=== PATIENT | male | born 1970 | race Hispanic/Latino ===

== ENCOUNTER → 2023-03-19 11:42 | Outpatient (CLI) | payer OTHER, SELFPAY ==
--- NOTE | 2023-03-19 11:47 | DI.MRI.S_ITS ---
PROCEDURE: MR HAND LT WO CON INDICATIONS: left hand pain TECHNIQUE: Noncontrast coronal T1 spin echo and T2 fast spin echo with fat saturation, axial proton density fast spin echo and T2 fast spin echo with fat saturation, sagittal T1 spin echo and STIR through the hand and fingers. COMPARISON: None. FINDINGS: Image quality: Excellent. Bones: Mild focal subchondral edema within the 4th metacarpal head adjacent to the articular surface, which may be reactive or secondary to overlying cartilage loss or prior trauma versus possibly an early erosions/osteitis. No other foci of abnormal osseous signal identified. The bones are normally aligned. Soft tissues: Focal hypointense soft tissue thickening is seen in the subcutaneous tissues at the volar aspect of the hand at the level of the distal 4th metacarpal overlying the flexor tendons. Similar but less prominent findings are also seen date superficial to the 5th flexor tendons. There is mild edema surrounding the 5th extensor tendon at the level of the 4th metacarpophalangeal joint, consistent with mild tenosynovitis. The visualized flexor and extensor tendons otherwise appear to be intact. No focal soft tissue edema or abnormal fluid. Visualized muscles demonstrate normal bulk and internal signal. No intramuscular masses identified. No ganglion cysts. IMPRESSION: 1. Mild edema surrounding the 4th extensor tendon at the level of the 4th metacarpophalangeal joint is suspicious for mild tenosynovitis. 2. Hypointense structures in the volar subcutaneous tissues superficial to the 4th flexor tendons, and to a lesser extent the 5th flexor tendons, are suspicious for Dupuytren's disease. 3. Mild focal osseous edema within the 4th metacarpal head may be secondary to overlying mild degenerative changes versus reactive to the adjacent tenosynovitis, or possibly related to focal osteitis/early osseous erosion. No signs of an inflammatory arthritis are seen in the remainder of the hand. Approved by: Geovanni Tiwari M.D. on 03/20/2023 at 13:14
== END ==
PROVIDERS: Referring Provider Orthopaedic Surgery; Visit Provider Orthopaedic Surgery
DX: S62.92XD Unspecified fracture of left hand, subsequent encounter for fracture with routine healing (principal); X58.XXXD Exposure to other specified factors, subsequent encounter
CPT/HCPCS: 73218

== ENCOUNTER → 2025-01-20 07:57 | Outpatient (CLI) | payer OTHER, SELFPAY ==
--- NOTE | 2025-01-20 07:58 | DI.CT.S_ITS ---
PROCEDURE: CT SINUS SCREEN WO CON INDICATIONS: CHRONIC PANSINUSITIS,FACIAL PAIN,HEADACHE SYNDROME TECHNIQUE: Noncontrast 3.0 mm axial images acquired from the frontal sinuses to the mid-sella, with coronal and sagittal reformats. For radiation dose reduction, the following was used: automated exposure control, adjustment of mA and/or kV according to patient size. COMPARISON: None. FINDINGS: Image quality: Excellent. Maxillary Sinuses: No bony remodeling or destruction. Mild mucosal thickening. Ethmoid Air Cells: No bony remodeling or destruction. Mild mucosal thickening. Sphenoid Sinuses: No bony remodeling or destruction. Mild mucosal thickening. Frontal Sinuses: No bony remodeling or destruction. Sinuses are clear. Ostiomeatal Complexes: Ostiomeatal complexes are patent. No Bailey cells. Miscellaneous: Visualized intra-orbital contents are normal. No efrain bullosa or paradoxical turbinate curvature. Leftward nasal septal deviation. IMPRESSION: Mild diffuse paranasal sinus disease. Dictated by: Yousuf Mcintosh M.D. on 01/20/2025 at 13:25 Approved by: Yousuf Mcintosh M.D. on 01/20/2025 at 13:27
== END ==
LOC: CT 07:57
PROVIDERS: PCP Preventive Medicine Aerospace Medicine; Referring Provider Otolaryngology; Visit Provider Otolaryngology
DX: J32.4 Chronic pansinusitis (principal); G44.89 Other headache syndrome; J34.2 Deviated nasal septum
CPT/HCPCS: 70486

== ENCOUNTER 2025-01-27 14:57 | Emergency (ER) | payer OTHER, SELFPAY ==
[2025-01-27 15:06] VITALS: BP 165/75; PULSE 74; RESP 18; TEMP 35.9; O2SAT 97; BMI 33.9
[2025-01-27] MEDS: PROPARACAINE 0.5% OPHTH SOL 1 DROPS EYE-LEFT (15:49)
[2025-01-27] MEDS: FLUORESCEIN 1 MG STRIP EYE-LEFT (15:49)
--- NOTE | 2025-01-27 15:58 | ED.EYEPROB ---
HPI - Eye Problem General Chief complaint: Eye Problems Stated complaint: 5 days with something in LT eye Time Seen by Provider: 01/27/25 15:34 Source: patient Mode of arrival: Ambulatory History of Present Illness HPI Narrative: 54-year-old male presents to the ED with 6 days of left eye redness. Patient states that his left eye feels somewhat heavy, however denies tearing, discharge, irritation, pain. Patient is unsure what caused the redness. Denies any foreign bodies in the eye or any other trauma. Patient does not wear contact lenses. Patient is wearing glasses for refractive correction. Related Data Previous Rx's Medication Instructions Recorded sodium,potassium,mag sulfates 17.5 See Rx Instructions PO .COMPLEX 12/10/24 gram-3.13 gram-1.6 gram oral soln #354 mL (Suprep Bowel Prep Kit) polymyxin B sulfate 10,000 2 drp EYE-LEFT Q6HR 7 days #10 mL 01/27/25 unit-trimethoprim 1 mg/mL eye drops Allergies Allergy/AdvReac Type Severity Reaction Status Date / Time No Known Drug Allergies Allergy Verified 12/09/24 15:43 Review of Systems Constitutional Constitutional: Denies chills, Denies fatigue, Denies fever(s), Denies frequent falls, Denies lethargy and Denies weakness Eyes Eyes: Denies change in vision, Denies eye discharge, Denies irritation and Denies loss of vision Comments: Left eye redness, blurriness ENT Ears, Nose, Mouth, and Throat: Denies change in voice, Denies dizziness, Denies neck pain, Denies sore throat and Denies throat swelling Cardiovascular Cardiovascular: Denies chest pain, Denies irregular heart rhythm, Denies lightheadedness, Denies palpitations, Denies dyspnea, Denies dyspnea on exertion and Denies orthopnea Respiratory Respiratory: Denies cough, Denies dyspnea, Denies dyspnea on exertion and Denies wheezing Gastrointestinal Gastrointestinal: Denies abdominal pain, Denies change in bowel habits, Denies diarrhea, Denies nausea and Denies vomiting Musculoskeletal Musculoskeletal: Denies neck pain and Denies numbness Integumentary/Breasts Skin/Breast: Denies pruritus, Denies erythema, Denies rash and Denies wounds Neurologic Neurologic: Denies behavioral changes, Denies confusion, Denies dizziness, Denies frequent falls, Denies loss of vision, Denies numbness and Denies weakness Psychiatric Psychiatric: Denies anxiety, Denies behavioral changes, Denies confusion, Denies depression, Denies homicidal ideation and Denies suicidal ideation Endocrine Endocrine: Denies fatigue, Denies flushing and Denies palpitations Hematologic/Lymphatic Hematologic/Lymphatic: Denies easy bruising Allergic/Immunologic Allergic/Immunologic: Denies urticaria, Denies throat swelling and Denies wheezing Patient History Surgical History Hx of vasectomy Social History Smoking Status: Never smoker Smoking Status: Never smoker Exam Narrative Exam Narrative: Const General:?cooperative, healthy appearing and comfortable [facility] Head:?normal to inspection Ears:?hearing grossly normal bilaterally Nose:?external nose normal Face and sinus:?normal facial exam and sinuses nontender Mouth:?oral mucosae normal Throat:?posterior oropharynx normal Eyes General:? Subconjunctival hemorrhage of the left eye. Visual acuity corrected with glasses: OD 20/30; OS 20/30; OU 20/30. No discharge, tearing. Fluorescein exam negative for corneal abrasions. Neck Neck:?normal visual inspection and no lymphadenopathy noted Resp Effort & Inspection:?normal respiratory effort Auscultation:?clear to auscultation bilaterally Cardio Rate:?regular rate Rhythm:?regular rhythm Neuro General:?patient alert, patient awake and patient oriented x3 Initial Vital Signs Initial Vital Signs: Vital Signs Temperature 96.7 F L 01/27/25 15:06 Pulse Rate 74 01/27/25 15:06 Respiratory Rate 18 01/27/25 15:06 Blood Pressure 165/75 H 01/27/25 15:06 Pulse Oximetry 97 01/27/25 15:06 Oxygen Delivery Method Room Air 01/27/25 15:06 Course Orders Ordered: Discontinued Medications Fluorescein Sodium (Fluorescein 1 Mg Strip) 1 mg EYE-LEFT NOW ONE Stop: 01/27/25 15:11 Last Admin: 01/27/25 15:49 Dose: 1 mg Documented By: CTS Proparacaine HCl (Proparacaine 0.5% Ophth Martha) 1 drops EYE-LEFT NOW ONE Stop: 01/27/25 15:11 Last Admin: 01/27/25 15:49 Dose: 1 drop Documented By: CTS Vital Signs Vital signs: Vital Signs - 8 hr 01/27/25 15:06 Temperature 96.7 F L Pulse Rate 74 Respiratory Rate 18 Blood Pressure 165/75 H Pulse Oximetry 97 Oxygen Delivery Method Room Air MDM - Eye Problem MDM Narrative Medical decision making narrative: 54-year-old male presents to the ED with 6 days of left eye redness. Fluorescein exam is negative for corneal abrasion. Vision grossly normal. Patient's presentation is most consistent with subconjunctival hemorrhage of the left eye. Counseled patient that this could be due to Valsalva maneuvers versus foreign objects in the eye versus other. Patient was prescribed antibiotic eyedrops prophylactically. Recommend returning to the ED or following up with an flyer maker if symptoms do not improve. ED return precautions discussed with patient. Patient verbalized understanding. Medical records reviewed: Yes Discharge Plan Departure Patient Disposition: Home Clinical Impression: Subconjunctival hemorrhage Qualifiers: Laterality: left Qualified Code(s): H11.32 - Conjunctival hemorrhage, left eye Instructions: DI for Subconjunctival Hemorrhage Activity Restrictions/Additional Instructions: You were evaluated in the ED today for left eye redness. It appears that you have a subconjunctival hemorrhage, which can occur commonly from either something getting into your eye or from straining from a bowel movement or lifting heavy weights. This is a homeless condition that will resolve spontaneously without treatment. Like a bruise, it will fade over the next several days. You are being prescribed a antibiotic eyedrop as a precautionary measure to avoid infection. If your symptoms do not improve over the next few days, please return to the ED or see an flyer maker. Prescriptions: New polymyxin B sulf-trimethoprim 10,000 unit- 1 mg/mL drops 2 drp EYE-LEFT Q6HR 7 Days Qty: 10 0RF No Action sodium,potassium,mag sulfates [Suprep Bowel Prep Kit] 17.5-3.13-1.6 gram recon soln See Rx Instructions PO .COMPLEX Qty: 354 0RF Rx Instructions: take as directed by Physician Referrals: Rama Reinoso DO [Primary Care Provider] - Stand Alone Forms: Patient Portal/API/Survey
== END 2025-01-27 16:02 | disposition home or self-care (01) ==
PROVIDERS: Emergency Provider Student in an Organized Health Care Education/Training Program; PCP Preventive Medicine Aerospace Medicine
DX: H11.32 Conjunctival hemorrhage, left eye (principal)
CPT/HCPCS: 99282

== ENCOUNTER 2025-02-06 12:36 | Day surgery (SDC) | payer OTHER, SELFPAY ==
--- NOTE | 2025-02-06 | PATH_ITS ---
[facility] Accession Number: [id number] No. of containers..02 Tissue . 01 Material submitted: . PART A: esophagus, E-G Junction - ESOPHAGUS, GE JUNCTION PART B: colon - COLON, ASCENDING POLYP . 01 Diagnosis: A. GASTROESOPHAGEAL JUNCTION, BIOPSY: Squamocolumnar junctional mucosa with mild reflux changes. Negative for intestinal metaplasia, dysplasia, and malignancy. . B. ASCENDING COLON: Tubular adenoma. MRV 02/11/2025 1618 Local . 01 Electronically signed: . Sabine Bates DO, Pathologist NPI- [id number] . 01 Gross description: . Part A: ESOPHAGUS, GE JUNCTION: Received in formalin are 2 fragment(s) of bruno, soft tissue measuring 0.3 x 0.2 x 0.2 cm to 0.5 x 0.2 x 0.2 cm submitted entirely in 1 cassette(s) Part B: COLON, ASCENDING POLYP: Received in formalin is 1 fragment(s) of bruno, soft tissue measuring 1.1 x 0.3 x 0.3 cm submitted entirely in 1 cassette(s) /LEONID 02/06/2025 2354 Local . 01 Pathologist provided ICD-10: Z12.11 . 01 CPT . 662639, 446276 Specimen Comment: A courtesy copy of this report has been sent to [phone] Performed at: [address] [facility] [address], [place], [place] [id number] MD French Patel MD Phone: [phone]
[2025-02-06 12:57] VITALS: BP 122/76; PULSE 69; RESP 16; TEMP 36.6; O2SAT 98
[2025-02-06] MEDS: LACTATED RINGERS 1,000 ML 42 ML IV (13:07)
--- NOTE | 2025-02-06 13:20 | PM.HP.IH.1 ---
History of Present Illness History of Present Illness Date Patient Seen: 02/06/25 Time Patient Seen: 13:20 Chief complaint: SDC Narrative: Reji is here for his EGD and colonoscopy for an episode of melena several months ago. None since then. See December office note for details. PFSH Surgical History Hx of vasectomy Social History Smoking Status: Current some day smoker alcohol intake: current Meds Home Medications and Allergies Home Medications Medication Instructions Recorded Confirmed Type sodium,potassium,mag sulfates 17.5 See Rx Instructions PO .COMPLEX 12/10/24 Rx gram-3.13 gram-1.6 gram oral soln #354 mL (Suprep Bowel Prep Kit) Allergies Allergy/AdvReac Type Severity Reaction Status Date / Time No Known Drug Allergies Allergy Verified 12/09/24 15:43 Exam Vital Signs (past 8 hours): - 02/06/25 12:57 Temperature 97.8 F Pulse Rate 69 Respiratory Rate 16 Blood Pressure 122/76 Pulse Oximetry 98 Oxygen Delivery Method Room Air Oxygen Delivery Method Room Air Const General: healthy appearing Assessment & Plan Assessment and plan (1) Melena: Status: Acute Plan EGD and colonoscopy Time-Based Coding :: [TOTAL MINUTES] spent with patient and on the chart (including review of chart, obtaining history, exam, reviewing outside data, placing orders, documenting exam and treatment plan, and counseling patient) on [DATE]. PROFEE Conference Coordinator Document charge(s): No
[2025-02-06 14:13] VITALS: BP 106/67; PULSE 75; RESP 14; TEMP 36.5; O2SAT 94
--- NOTE | 2025-02-06 14:13 | P.OP.EGD&C_ITS ---
Operative Date/Time/Diagnoses Date of procedure: 02/06/25 Time of procedure: 14:13 Pre-op diagnosis: Melena Post-op diagnosis: same Procedure & Clinicians Study performed: EGD and colonoscopy Same procedure as scheduled: Yes Surgeon: Chema Mendez Procedure Notes Procedure in detail: Surgeon: Chema Mendez MD Anesthesia: Louis Martinez MD Procedure in detail: A timeout was performed. A bite blocked was placed and monitors were attached to the patient. The patient was positioned in the left lateral decubitus position. Sedation was administered. Once the patient was sedated the endoscope was inserted through the bite block and passed through the esophagus and stomach and into the duodenum. No abnormalities were seen in the duodenum. We then withdrew the scope into the stomach. No abnormalities were seen in the stomach. The endoscope was retroflexed and no hiatal hernia was s een. The endoscope was straightned and withdrawn into the esophagus. There was some mild inflammation at the GE junction and biopsies were taken with cold forceps. The rest of the esophagus was normal. EGD findings: Mild inflammation at the GE junction Next we repositioned the patient for a colonoscopy. A digital rectal exam was performed and was normal. The colonoscope was inserted and advanced to the cecum. The appendiceal orifice was identified and photographed. The scope was slowly withdrawn over greater than 6 minutes. There was a 6 mm polyp in the ascending colon removed with a cold snare. The scope was retroflexed in the rectum and no other abnormalities were seen. Colonoscopy findings: 6 mm polyp in the ascending colon Total procedural EBL: 2 mL Scope withdrawal time: 7 minutes Sedation minutes: 16 minutes Post-procedure Disposition: PACU
[2025-02-06 14:18] VITALS: BP 98/70; PULSE 74; RESP 14; O2SAT 94
[2025-02-06 14:23] VITALS: BP 103/75; PULSE 62; RESP 15; O2SAT 96
[2025-02-06 14:30] VITALS: BP 99/68; PULSE 71; RESP 16; TEMP 36.2; O2SAT 97
[2025-02-06 14:37] VITALS: BP 106/78; PULSE 65; RESP 16; TEMP 36.1; O2SAT 98
== END 2025-02-06 14:44 | disposition home or self-care (01) ==
PROVIDERS: PCP Preventive Medicine Aerospace Medicine; Referring Provider Surgery; Visit Provider Surgery
PROC: 0DJ08ZZ Inspection of Upper Intestinal Tract, Via Natural or Artificial Opening Endoscopic (ICD-10-PCS; CPT 45385; principal; 2025-02-06 14:30)
PROC: 0DJD8ZZ Inspection of Lower Intestinal Tract, Via Natural or Artificial Opening Endoscopic (ICD-10-PCS; CPT 45378; 2025-02-06 14:30)
DX: K92.1 Melena (principal); F17.210 Nicotine dependence, cigarettes, uncomplicated; D12.2 Benign neoplasm of ascending colon
CPT/HCPCS: 45385; 43239; J2704